=== PATIENT | male | born 2000 | race Two or more races ===

== ENCOUNTER 2024-03-19 08:33 | Emergency (ER) | payer OTHER, MEDICAID ==
[~2024-03-19] VITALS: Ht 170.2 cm; Wt 84.3 kg
[2024-03-19 11:30] VITALS: BP 125/66; PULSE 50; RESP 16; TEMP 97.7; O2SAT 99
== END 2024-03-19 11:30 | disposition home or self-care (01) ==
LOC: ER 08:34
DX: S13.4XXA Sprain of ligaments of cervical spine, initial encounter (principal); R11.0 Nausea; V43.52XA Car driver injured in collision with other type car in traffic accident, initial encounter; Y93.89 Activity, other specified; Y92.89 Other specified places as the place of occurrence of the external cause; Y99.8 Other external cause status
CPT/HCPCS: 99282